=== PATIENT | male | born 1960 | race Caucasian/White ===

== ENCOUNTER 2019-08-31 08:56 | Observation (INO) ==
[2019-08-31] MEDS ORDERED: IOPAMIDOL 100 ML BOTTLE IV ONE (08:57)
[2019-08-31] MEDS ORDERED: 0.9 % SODIUM CHLORIDE 2,000 ML IV ONE (09:42)
[2019-08-31] MEDS ORDERED: KETOROLAC 30 MG/ML VIAL IV ONE (09:42)
[2019-08-31] MEDS ORDERED: ONDANSETRON 4 MG/2 ML VIAL IV ONE (09:42)
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
[2019-08-31] MEDS: HYDROmorphone 2 MG/ML VIAL IV PRN ×2 (10:12→13:46)
[2019-08-31 10:15] LABS: POC Blood Urea Nitrogen 8 mg/dl (6-20); POC CO2 22 mmol/L (22-30); POC Calcium, Ionized 1.02 mmol/L (1.16-1.32); POC Chloride 106 mmol/L (96-108); POC Creatinine 0.6 mg/dl (0.7-1.2); POC Glucose, Random 107 mg/dL (70-105); POC Sodium 141 mmol/L (133-145)
[2019-08-31 10:52] LABS: Basophils # (Auto) 0 K/mcL (0.0-0.3); Basophils % (Auto) 0 % (0.0-2.0); Eosinophils # (Auto) 0 K/mcL (0.0-0.7); Eosinophils % (Auto) 0 % (0.0-7.0); Granulocytes % (Auto) 86.3 % (38.0-78.0); Hematocrit 45.3 % (41.0-55.0); Hemoglobin 15.2 g/dL (13.5-16.5); Lymphocytes # (Auto) 1.3 K/mcL (1.5-4.8); Lymphocytes % (Auto) 9.3 % (15.5-49.0); Mean Cell Volume 95.3 fL (80.0-100.0); Mean Corpuscular HGB Conc 33.6 g/dL (31.0-36.0); Mean Platelet Volume 8.1 fL (7.4-10.4); Monocytes # (Auto) 0.6 K/mcL (0.1-0.9); Monocytes % (Auto) 4.4 % (1.0-12.0); Platelet Count 190 K/mcL (140-440); RBC 4.75 M/mcL (4.50-5.90); Red Cell Distribution Width 15.1 % (11.5-14.5); WBC 13.6 K/mcL (4.5-11.0)
--- NOTE | 2019-08-31 11:01 | Cat Scan Report ---
CLINICAL INFORMATION: Trauma COMPARISON: None. TECHNIQUE: 2.5 mm helical slices were obtained in the skull base to vertex. Following reconstruction, axial reformatted images were reviewed at bone and parenchymal windows. The exam was performed using radiation dose optimization techniques including, but not limited to, automated exposure control, adjustment of the mA and/or kV according to patient size and use of iterative reconstruction technique. FINDINGS: The ventricles, sulci, fissures, and cisterns are normal in size and configuration for age. No extra-axial fluid collections are identified. The cerebrum, brainstem and cerebellum are unremarkable. There is no evidence of hemorrhage, mass effect, or edema. Bone windows show no osseous abnormality. Delayed enhanced images show no abnormal enhancement. The cerebral arterial vasculature, cerebral veins and the venous sinuses are unremarkable IMPRESSION: Normal head CT without contrast. Interpreted and Authenticated by: Travis Preciado 08/31/19
--- NOTE | 2019-08-31 11:06 | Cat Scan Report ---
CLINICAL INFORMATION: Trauma1 COMPARISON: None. TECHNIQUE: 2.5 mm helical slices were obtained from the skull base through the superior T2 end plate. Following reconstruction, 2.5 mm sagittal, coronal and axial reformations , with and without disc space angling, were processed. The exam was reviewed at bone and soft tissue windows. The exam was performed using radiation dose optimization techniques including, but not limited to, automated exposure control, adjustment of the mA and/or kV according to patient size and use of iterative reconstruction technique. FINDINGS: Sagittal and coronal reformatted images show the cervical spine to be anatomically aligned. There is no fracture or other osseous abnormality. The cervical cord is normal in contour and caliber without focal lesion. At C2-3 and C3-4, there is small broad central disc protrusions minimally impinging the thecal sac. C4-5 and C5-6, mild broad protrusions mildly impinge the thecal sac At C6-7, mild broad disc protrusion left-sided asymmetry results in mild left lateral recess narrowing and mild central canal narrowing C7-T1 mild broad disc protrusion is noted Mildly enlarged deep cervical lymph nodes in the upper neck including the periparotid jugular carotid region. These are almost certainly benign reactive lymph nodes are commonly seen. IMPRESSION: 1. No fracture posterior manic change. 2. Mild degenerative disc disease. Interpreted and Authenticated by: Travis Preciado 08/31/19
[2019-08-31 11:07] LABS: Alcohol,Blood 0.068 gm/dl (<0.010)
[2019-08-31 11:08] LABS: Prothrombin Time 12.9 sec (11.9-14.5)
[2019-08-31 11:13] LABS: ALT/SGPT 55 U/l (0-40); AST/SGOT 134 U/l (0-37); Albumin 4.2 gm/dL (3.2-5.2); Albumin/Globulin Ratio 0.9 (1.0-2.3); Alkaline Phosphatase 66 U/L (39-117); Bilirubin,Total 0.6 mg/dL (0.0-1.0); Blood Urea Nitrogen 9 mg/dl (6-20); Calcium 9.1 mg/dl (8.6-10.4); Carbon Dioxide 22 mmol/L (22-30); Chloride 101 mmol/L (96-108); Globulin 4.6 gm/dL (2.2-3.7); Glomerular Filtration Rate 119; Glucose 108 mg/dL (70-105)
--- NOTE | 2019-08-31 11:19 | Cat Scan Report ---
CLINICAL INFORMATION: Trauma COMPARISON: None. TECHNIQUE: Enteric contrast was utilized. 80 cc of Isovue-[id number] were injected intravenously, and 50 seconds later 2.5 mm helical slices were obtained from the lung apices through the subtrochanteric regions of the femurs. Following reconstruction, 2.5 mm sagittal, coronal and axial reformatted images were processed and reviewed at multiple windows and levels. 7 mm MIP reconstructions were obtained through the lungs to optimize nodule detection.The exam was performed using radiation dose optimization techniques including, but not limited to, automated exposure control, adjustment of the mA and/or kV according to patient size and use of iterative reconstruction technique. FINDINGS: Pulmonary parenchymal windows show mild chronic bronchitis. There are no diffuse or regional infiltrates. There is an 8.5 mm pleural-based fat-containing benign hamartoma in the lingula. No other nodules identified - no evidence of malignancy. Pleural spaces are normal. Mediastinal windows show the thoracic aorta and pulmonary arteries are normal in contour and caliber and well opacified. There is no mediastinal air or hemorrhage. The heart is normal in size and configuration. Only minimal calcific plaque scattered in the coronary arteries. There is no adenopathy in the mediastinal hilar or axillary region. Esophagus is grossly normal. The thyroid is unremarkable. Abdominal images show the gallbladder and bile ducts, liver, both kidneys, adrenal glands, spleen, pancreas and aorta, including aortic branches to be normal in size configuration and attenuation without contusion or laceration or other focal abnormality. There is no free air, free fluid or adenopathy. Pelvic images show prostate, seminal vesicles and urinary bladder to be normal. Multiple sigmoid diverticuli noted, but no evidence of diverticulitis. The remaining large bowel, stomach and small bowel are normal. The bone windows show no fracture throughout the chest abdomen or pelvis. At L4-5, there is a moderate broad disc protrusion resulting in mild central canal and severe bilateral IV foraminal narrowing impinging the exiting L4 nerve roots IMPRESSION: 1. No posttraumatic change seen throughout the chest abdomen or pelvis. 2. 8.5 mm benign hamartoma in the lingula. 3. Mild chronic bronchitis 4. Sigmoid diverticulosis. Abdomen and pelvis are otherwise unremarkable 5. L4-5: moderate broad disc spur complex resulting in severe bilateral IV foraminal narrowing impinging exiting L4 nerve roots Interpreted and Authenticated by: Travis Preciado 08/31/19
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
[2019-08-31] MEDS ORDERED: cefTRIAXone 1 GM VIAL IV ONE (15:11)
[2019-08-31 16:44] LABS: Appearance,Urine CLEAR; Bacteria,Urine 0 /hpf (0); Bilirubin,Urine NEG (NEG); Color,Urine YELLOW; Culture Indicated,Urine NO; Glucose,Urine (UA) 50 mg/dL (NEG); Ketones,Urine 5/TR mg/dL (NEG); Leukocyte Esterase,Urine NEG /uL (NEG); Mucus,Urine FEW /hpf (0); Nitrate,Urine NEG (NEG); Protein,Urine 100 mg/dL (NEG); Specific Gravity,Urine 1.051 (1.000-1.035); Urine Blood 0.2 mg/dL (<0.03); Urine Hyaline Cast 2 /lpf (0-2); Urine RBC 5 /hpf (0-1); Urine Squamous Epithelial Cell < 1 /hpf (0-4); Urine WBC 1 /hpf (0-4); Urobilinogen,Urine NEG (NEG)
[2019-08-31 16:46] LABS: Amphetamine Screen,Urine NONE DETECTED (NONDETECTED); Barbiturate Screen,Urine NONE DETECTED (NONDETECTED); Benzodiazepines Screen,Urine NONE DETECTED (NONDETECTED); Cannabinoid Screen,Urine SUSPECT POSITIVE (NONDETECTED); Cocaine Screen,Urine NONE DETECTED (NONDETECTED); Opiate Screen,Urine NONE DETECTED (NONDETECTED); Oxycodone, Urine Screen NONE DETECTED (NONDETECTED); Phencyclidine Screen,Urine NONE DETECTED (NONDETECTED)
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
[2019-08-31] MEDS ORDERED: HYDROmorphone 2 MG/ML VIAL IV PRN (17:17)
[2019-08-31] MEDS ORDERED: 0.9 % SODIUM CHLORIDE 1,000 ML IV ONE (17:46)
[2019-08-31] MEDS ORDERED: DIAZEPAM 5 MG TABLET PO PRN (19:12)
[2019-08-31] MEDS ORDERED: POTASSIUM CHLORIDE 20 MEQ TABLET PO PRN ×2 (19:12)
[2019-08-31] MEDS ORDERED: POLYETHYLENE GLYCOL 3350 17 GM PACKET PO PRN (19:12)
[2019-08-31] MEDS ORDERED: MAGNESIUM SULFATE 2 GM/50 ML BAG IV PRN (19:12)
[2019-08-31] MEDS ORDERED: ONDANSETRON 4 MG/2 ML VIAL IV PRN (19:12)
[2019-08-31] MEDS ORDERED: LORazepam 2 MG/ML VIAL IV PRN (19:12)
[2019-08-31] MEDS ORDERED: POTASSIUM CHLORIDE 40 MEQ in DEXTROSE 5% IN WATER 500 ML IV PRN (19:12)
[2019-08-31] MEDS ORDERED: SENNOSIDES 1 TABLET PO PRN (19:12)
[2019-08-31] MEDS ORDERED: ACETAMINOPHEN 325 MG TABLET PO PRN (19:12)
[2019-08-31] MEDS: 0.9 % SODIUM CHLORIDE 1,000 ML IV SCH (19:26)
[2019-08-31] MEDS: HYDROcodone/APAP 5/325MG TABLET PO PRN (19:58)
[2019-08-31] MEDS: THIAMINE 100 MG TABLET PO SCH (21:19)
[2019-08-31] MEDS: DOCUSATE SODIUM 100 MG CAPSULE PO SCH (21:19)
[2019-08-31] MEDS: AMOXICILLIN/POTASSIUM CLAV 500 MG TABLET PO SCH (21:19)
[2019-08-31] MEDS: 0.9 % SODIUM CHLORIDE 10 ML SYRINGE IV SCH (22:44)
[2019-09-01] MEDS: HYDROcodone/APAP 5/325MG TABLET PO PRN ×4 (00:41→19:31)
[2019-09-01] MEDS: 0.9 % SODIUM CHLORIDE 10 ML SYRINGE IV SCH ×3 (04:21→22:06)
[2019-09-01 06:23] LABS: Hematocrit 38.2 % (41.0-55.0); Hemoglobin 12.7 g/dL (13.5-16.5); Mean Cell Volume 95.3 fL (80.0-100.0); Mean Corpuscular HGB Conc 33.3 g/dL (31.0-36.0); Mean Platelet Volume 8.4 fL (7.4-10.4); Platelet Count 135 K/mcL (140-440); RBC 4.01 M/mcL (4.50-5.90); Red Cell Distribution Width 15.4 % (11.5-14.5); WBC 7.8 K/mcL (4.5-11.0)
[2019-09-01 06:44] LABS: ALT/SGPT 40 U/l (0-40); AST/SGOT 96 U/l (0-37); Albumin 3.3 gm/dL (3.2-5.2); Albumin/Globulin Ratio 0.9 (1.0-2.3); Alkaline Phosphatase 53 U/L (39-117); Bilirubin,Direct 0.2 mg/dL (0.0-0.3); Bilirubin,Total 0.7 mg/dL (0.0-1.0); Blood Urea Nitrogen 13 mg/dl (6-20); Calcium 8.1 mg/dl (8.6-10.4); Carbon Dioxide 25 mmol/L (22-30); Chloride 103 mmol/L (96-108); Globulin 3.8 gm/dL (2.2-3.7); Glomerular Filtration Rate 111; Glucose 95 mg/dL (70-105); Lactate Dehydrogenase 260 U/L (94-250); Triglycerides 42 mg/dl (<150); Uric Acid 6.5 mg/dL (2.5-8.0)
[2019-09-01 07:25] LABS: Anisocytosis FEW (NONE SEEN); Eosinophils % (Manual) 1 % (0-7); Lymphocytes % 19 % (15-49); Monocytes % (Manual) 4 % (1-12); Platelet Estimate DECREASED (NORMAL); RBC Morphology ABNORM (NORMAL); Reactive Lymphocytes 4 % (0-2); Segmented Neutrophils % 72 % (38-78)
[2019-09-01] MEDS ORDERED: MAGNESIUM SULFATE 2 GM/50 ML BAG IV ONE (07:51)
[2019-09-01] MEDS ORDERED: CALCIUM GLUCONATE 4.65 MEQ in DEXTROSE 5% IN WATER 50 ML IV ONE (07:52)
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
[2019-09-01] MEDS: NEUTRA PHOS 1 PACKET PO SCH ×3 (09:06→22:05)
[2019-09-01] MEDS: MULTIVIT,THER IRON,CA,FA & MIN 1 TABLET PO SCH (09:06)
[2019-09-01] MEDS: FOLIC ACID 1 MG TABLET PO SCH (09:06)
[2019-09-01] MEDS: THIAMINE 100 MG TABLET PO SCH (09:06)
[2019-09-01] MEDS: AMOXICILLIN/POTASSIUM CLAV 500 MG TABLET PO SCH ×2 (09:06→17:36)
[2019-09-01] MEDS: DOCUSATE SODIUM 100 MG CAPSULE PO SCH ×2 (09:06→22:05)
[2019-09-01] MEDS: 0.9 % SODIUM CHLORIDE 1,000 ML IV SCH (09:07)
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
[2019-09-01] MEDS ORDERED: INDOMETHACIN 25 MG CAPSULE PO ONE (22:29)
[2019-09-02] MEDS: HYDROcodone/APAP 5/325MG TABLET PO PRN ×4 (04:37→18:42)
[2019-09-02] MEDS: 0.9 % SODIUM CHLORIDE 10 ML SYRINGE IV SCH ×3 (04:38→20:11)
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
[2019-09-02 07:37] LABS: ALT/SGPT 37 U/l (0-40); AST/SGOT 76 U/l (0-37); Albumin 3.4 gm/dL (3.2-5.2); Albumin/Globulin Ratio 0.9 (1.0-2.3); Alkaline Phosphatase 58 U/L (39-117); Bilirubin,Direct 0.2 mg/dL (0.0-0.3); Bilirubin,Total 0.9 mg/dL (0.0-1.0); Blood Urea Nitrogen 10 mg/dl (6-20); Calcium 8.8 mg/dl (8.6-10.4); Carbon Dioxide 23 mmol/L (22-30); Chloride 101 mmol/L (96-108); Globulin 3.9 gm/dL (2.2-3.7); Glomerular Filtration Rate 111; Glucose 95 mg/dL (70-105); Lactate Dehydrogenase 252 U/L (94-250); Triglycerides 67 mg/dl (<150); Uric Acid 5.9 mg/dL (2.5-8.0)
[2019-09-02 07:40] LABS: Phosphorous 2.3 mg/dL (2.7-4.5)
[2019-09-02] MEDS: THIAMINE 100 MG TABLET PO SCH (10:14)
[2019-09-02] MEDS: AMOXICILLIN/POTASSIUM CLAV 500 MG TABLET PO SCH ×2 (10:14→16:59)
[2019-09-02] MEDS: DOCUSATE SODIUM 100 MG CAPSULE PO SCH ×2 (10:15→20:10)
[2019-09-02] MEDS: MULTIVIT,THER IRON,CA,FA & MIN 1 TABLET PO SCH (10:15)
[2019-09-02] MEDS: FOLIC ACID 1 MG TABLET PO SCH (10:15)
[2019-09-02] MEDS: INDOMETHACIN 25 MG CAPSULE PO SCH ×3 (14:19→20:10)
[2019-09-02] MEDS ORDERED: LABETALOL 5 MG/ML ML IV PRN (16:30)
[2019-09-02] MEDS ORDERED: ENALAPRILAT 1.25 MG/ML VIAL IV PRN (16:31)
[2019-09-02] MEDS: amLODIPine 5 MG TABLET PO SCH (16:56)
[2019-09-03] MEDS: HYDROcodone/APAP 5/325MG TABLET PO PRN ×2 (03:30→12:12)
[2019-09-03] MEDS: 0.9 % SODIUM CHLORIDE 10 ML SYRINGE IV SCH (06:32)
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
[2019-09-03] MEDS: AMOXICILLIN/POTASSIUM CLAV 500 MG TABLET PO SCH (09:02)
[2019-09-03] MEDS: INDOMETHACIN 25 MG CAPSULE PO SCH (09:04)
[2019-09-03] MEDS: FOLIC ACID 1 MG TABLET PO SCH (09:10)
[2019-09-03] MEDS: amLODIPine 5 MG TABLET PO SCH (09:10)
[2019-09-03] MEDS: THIAMINE 100 MG TABLET PO SCH (09:10)
[2019-09-03] MEDS: MULTIVIT,THER IRON,CA,FA & MIN 1 TABLET PO SCH (09:10)
[2019-09-03] MEDS: DOCUSATE SODIUM 100 MG CAPSULE PO SCH (09:10)
[2019-09-06 13:09] LABS: Cannabinoid Confirmation POSITIVE (N)
== END 2019-09-03 14:15 | disposition other institution (70) ==
LOC: MEDSUR 08:56 → ED 08:56 → MEDSUR 19:10
PROVIDERS: ADMIT Internal Medicine; ATTEND Internal Medicine